=== PATIENT | female | born 1955 | race Caucasian/White ===

== ENCOUNTER 2018-09-28 06:56 | Day surgery (SDC) | payer MEDICARE ==
[~2018-09-28] VITALS: Ht 165.1 cm; Wt 90.7 kg
[~2018-09-28 06:56] MED LIST: BUSPIRONE HCL5 MG PO; IBUPROFEN600 MG PO; NORCO 10-325 T1 EACH PO; NORCO 5-325 TA1 EACH PO; RALOXIFENE HCL60 MG PO; XANAX0.5 MG PO
--- NOTE | 2018-09-28 08:24 | NUR ---
09/28/18 0824 Miriam Caldwell 0818 PATIENT ARRIVES TO PACU AWAKE, BUT DROWSY. RESP EVEN AND UNLABORED, ROOM AIR SATS 99%.
--- NOTE | 2018-09-28 10:12 | NUR ---
LE 0845 PT ARRIVES FROM PACU, AWAKE AND TALKING WITH STAFF. DENIES NAUSEA. RATES PAIN 2/10, SHE STATES THIS IS TOLERABLE. PT GIVEN WATER AND CRACKERS. DRSG C/D/I, ICE IN PLACE. HARDWARE GIVEN TO PT'S FROM [facility]. NO FURTHER QUESTION, CALL LIGHT IN REACH.
--- NOTE | 2018-09-28 13:32 | OR ---
[facility] [address], [place] [address] Signed DATE OF OPERATION: 09/28/2018 SURGEON: Jeanne Aranda MD PREOPERATIVE DIAGNOSIS: Retained syndesmotic screw, left ankle. POSTOPERATIVE DIAGNOSIS: Retained syndesmotic screw, left ankle. PROCEDURE: Removal of syndesmotic screw. ANESTHESIA: General. SPECIMENS AND COMPLICATIONS: There were no specimens or complications. TOURNIQUET TIME: About 20 minutes. WHAT WAS DONE: The patient was taken to the operating room. After anesthesia was induced and the airway secured, the patient was positioned, prepped and draped in a routine sterile fashion. The head of the screw was localized under fluoroscopic control. About a 1 cm incision was made over the screw head, which was gently evacuated with a small periosteal elevator. We then able to back the screw out without any difficulty. We placed a dental pick over the fibula and pulled and the contest remained normal. The wound was gently irrigated and closed in standard fashion. Sterile dressings were applied. She was awakened, taken to the recovery room where she arrived in stable condition. ADDENDUM: There was some discrepancy between some of the records as to whether they just wanted the syndesmotic screw removed or all of the hardware. We spent about 15 minutes trying to locate the partner and did not respond to calls to his cellphone, the pager and could not be located anywhere in the hospital. Electronically Signed By: JEANNE ARANDA MD 09/28/18 1332 PATIENT NAME: TORI SHETH OPERATIVE REPORT DATE OF : 51 REPORT #: [id number] PHYSICIAN: JEANNE ARANDA MD PCP: NO PRIMARY CARE PHYSICIAN REPORT IS CONFIDENTIAL AND NOT TO BE RELEASED WITHOUT AUTHORIZATION [address] [address] Signed Jeanne Aranda MD WFKyra/MODL /[id number] Copies: ~ Electronically Signed By: JEANNE ARANDA MD 09/28/18 1332 PATIENT NAME: TORI SHETH OPERATIVE REPORT DATE OF : 51 REPORT #: [id number] PHYSICIAN: JEANNE ARANDA MD PCP: NO PRIMARY CARE PHYSICIAN REPORT IS CONFIDENTIAL AND NOT TO BE RELEASED WITHOUT AUTHORIZATION
== END 2018-09-28 10:00 | disposition home or self-care (01) ==
LOC: DS 06:56 → OPS 06:56 → DS 08:15 → OPS 08:15
PROVIDERS: Orthopaedic Surgery
PROC: 0SPG04Z Removal of Internal Fixation Device from Left Ankle Joint, Open Approach (ICD-10-PCS; principal; 2018-09-28 08:15)
DX: T84.84XA Pain due to internal orthopedic prosthetic devices, implants and grafts, initial encounter (principal); I10 Essential (primary) hypertension; F41.9 Anxiety disorder, unspecified; E66.9 Obesity, unspecified; Z87.891 Personal history of nicotine dependence; Z68.33 Body mass index [BMI] 33.0-33.9, adult; Z79.899 Other long term (current) drug therapy
CPT/HCPCS: 73600; J0690; J1100; J2250; J2405; J2704; J3010; J7120